=== PATIENT | male | born 1965 | race Two or more races ===

== ENCOUNTER 2022-03-04 15:04 | Inpatient (IN) | payer MEDICARE, MEDICAID ==
[~2022-03-04] VITALS: Ht 177.8 cm; Wt 66.4 kg
[~2022-03-04 15:04] MED LIST: ASPI-325 PO; ATOR40TA52 PO; CLOP75TA70 PO; MET50T PO; METH750T22 PO; NIFE1TAB30 PO; PROP60CA37 PO
[2022-03-04] MEDS ORDERED: ASPirin 325 MG TAB PO ONE (15:30)
[2022-03-04] MEDS ORDERED: NITROGLYCERIN 0.4 MG SL TAB SL ONE (15:30)
[2022-03-04 16:13] LABS: Basophils # (auto) 0 10 ^3/uL (0-0.2); Basophils % (auto) 0.5 % (0.0-2.0); Eosinophils # (auto) 0.1 10 ^3/uL (0-0.8); Eosinophils % (auto) 2.3 % (0.0-7.0); Hematocrit 41.7 % (41.0-53.0); Hemoglobin 13.6 g/dL (13.5-17.5); Lymphocytes # (auto) 1.3 10 ^3/uL (0.4-5.4); Mean Corpuscular Hemoglobin 29.2 pg (28.0-32.0); Mean Corpuscular Hgb Conc. 32.5 g/dL (32.0-36.0); Mean Corpuscular Volume 89.8 fL (80.0-100.0); Monocytes # (auto) 0.5 10 ^3/uL (0-1.3); Monocytes % (auto) 7.7 % (0.0-12.0); Neutrophils # (auto) 4.1 10 ^3/uL (1.6-8.6); Neutrophils % (auto) 67.5 % (37.0-80.0); Red Blood Cells 4.64 10^6/uL (4.5-5.90); Red Cell Distribution Width 14.2 % (11.8-14.3)
[2022-03-04 16:29] LABS: Albumin 3.7 g/dL (3.4-5.0); Calcium 9.1 mg/dL (8.5-10.1); Potassium 3.9 mmol/L (3.5-5.1)
[2022-03-04 16:33] LABS: BUN/Creatinine Ratio 13.2; Bilirubin, Total 0.3 mg/dL (0.2-1.0); Total Protein 6.9 g/dL (6.4-8.2)
[2022-03-04] MEDS ORDERED: MORPHINE SULFATE INJ 2 MG/ml SYRG IV PRN (19:45)
[2022-03-05 00:59] LABS: Urine Bacteria NONE SEEN /hpf (None Seen); Urine Blood Negative /uL (Negative); Urine Mucus FEW (None Seen); Urine Specific Gravity 1.026 (1.001-1.035); Urine WBC <1 /hpf (0 - 3)
[2022-03-05 05:18] LABS: Basophils # (auto) 0 10 ^3/uL (0-0.2); Basophils % (auto) 0.3 % (0.0-2.0); Eosinophils # (auto) 0.1 10 ^3/uL (0-0.8); Eosinophils % (auto) 1.7 % (0.0-7.0); Hematocrit 40.5 % (41.0-53.0); Hemoglobin 13.8 g/dL (13.5-17.5); Lymphocytes # (auto) 1.4 10 ^3/uL (0.4-5.4); Lymphocytes % (auto) 23.7 % (10.0-50.0); Mean Corpuscular Hemoglobin 30.4 pg (28.0-32.0); Mean Corpuscular Volume 89.3 fL (80.0-100.0); Monocytes # (auto) 0.6 10 ^3/uL (0-1.3); Monocytes % (auto) 9.3 % (0.0-12.0); Neutrophils # (auto) 3.9 10 ^3/uL (1.6-8.6); Nucleated Red Blood Cells % 0.1 %; Red Blood Cells 4.54 10^6/uL (4.5-5.90); Red Cell Distribution Width 14.2 % (11.8-14.3); White Blood Cell 5.9 10^3/uL (4.4-10.8)
[2022-03-05 05:19] LABS: Albumin 3.6 g/dL (3.4-5.0); Calcium 8.8 mg/dL (8.5-10.1); Potassium 3.6 mmol/L (3.5-5.1)
[2022-03-05 05:25] LABS: BUN/Creatinine Ratio 14.4; Bilirubin, Total 0.4 mg/dL (0.2-1.0); Total Protein 6.7 g/dL (6.4-8.2)
[2022-03-05] MEDS: ASPirin-EC 81 mg tab PO SCH (10:52)
[2022-03-05] MEDS: ENOXAPARIN SOD 40 MG/0.4 ML SYRINGE SC SCH (10:52)
[2022-03-05] MEDS: ATORVASTATIN 20 MG TAB PO SCH (10:52)
[2022-03-05] MEDS: NITROGLYCERIN 0.4 MG SL TAB SL PRN ×3 (12:26→12:50)
[2022-03-05 12:55] VITALS: BP 140/106
[2022-03-05 13:00] VITALS: BP 140/106
[2022-03-05 15:00] VITALS: BP 146/107
[2022-03-05] MEDS ORDERED: METHOCARBAMOL 500 MG TAB PO PRN (15:30)
[2022-03-05] MEDS ORDERED: PROPRANOLOL HCL 20 MG TAB PO ONE (15:30)
[2022-03-05] MEDS ORDERED: METOPROLOL TARTRATE 50 MG TAB PO ONE (15:30)
[2022-03-05] MEDS ORDERED: NIFEdipine ER 30 MG TAB PO ONE (15:30)
[2022-03-05 17:00] VITALS: BP 145/94
[2022-03-05 22:00] VITALS: BP 110/78
[2022-03-05] MEDS: METOPROLOL TARTRATE 50 MG TAB PO SCH (22:03)
[2022-03-06 05:00] VITALS: BP 125/87
[2022-03-06 09:00] VITALS: BP 125/84
[2022-03-06] MEDS: ATORVASTATIN 20 MG TAB PO SCH (09:54)
[2022-03-06] MEDS: ASPirin-EC 81 mg tab PO SCH (09:54)
[2022-03-06] MEDS: ENOXAPARIN SOD 40 MG/0.4 ML SYRINGE SC SCH (09:55)
[2022-03-06] MEDS: METOPROLOL TARTRATE 50 MG TAB PO SCH (09:56)
[2022-03-06] MEDS ORDERED: PROPRANOLOL HCL 20 MG TAB PO SCH (10:00)
[2022-03-06] MEDS ORDERED: CLOPIDOGREL BISULFATE 75 MG TAB PO SCH (10:00)
[2022-03-06] MEDS ORDERED: NIFEdipine ER 30 MG TAB PO SCH (10:00)
[2022-03-06 10:42] VITALS: BP 125/84
[2022-03-06 13:00] VITALS: BP 147/94
== END 2022-03-06 14:50 | disposition home or self-care (01) | DRG 313 ==
LOC: ER 15:04 → TELE 19:33 → TELE-CENTR 03-05 11:39
PROVIDERS: ADMIT Nurse Practitioner Family; ATTEND Family Medicine
DX: R07.89 Other chest pain (principal); E78.00 Pure hypercholesterolemia, unspecified; I10 Essential (primary) hypertension; I25.10 Atherosclerotic heart disease of native coronary artery without angina pectoris; Z20.822 Contact with and (suspected) exposure to COVID-19; I25.2 Old myocardial infarction; Z79.02 Long term (current) use of antithrombotics/antiplatelets; Z79.82 Long term (current) use of aspirin; Z86.73 Personal history of transient ischemic attack (TIA), and cerebral infarction without residual deficits
CPT/HCPCS: 36415; 71045; 80053; 81001; 84484; 85025; 87081; 93005; 96372; G0378